=== PATIENT | female | born 1945 | race Two or more races ===

== ENCOUNTER 2023-04-06 09:30 | Outpatient (CLI) | payer OTHER | END 2023-04-06 09:32 | disposition home or self-care (01) | LOC: SONOGRAMA 09:30 | PROVIDERS: ATTEND Pathology Anatomic Pathology & Clinical Pathology | DX: D34 Benign neoplasm of thyroid gland (principal); E07.9 Disorder of thyroid, unspecified; E04.9 Nontoxic goiter, unspecified ==